=== PATIENT | male | born 2000 | race Caucasian/White ===

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

== ENCOUNTER 2023-02-22 16:49 | Emergency (ER) | payer SELFPAY ==
[~2023-02-22] VITALS: Ht 172.7 cm; Wt 59.0 kg
== END 2023-02-22 18:31 | disposition home or self-care (01) ==
LOC: ED 16:49
DX: S61.210A Laceration without foreign body of right index finger without damage to nail, initial encounter (principal); Z98.890 Other specified postprocedural states; W26.0XXA Contact with knife, initial encounter; Y93.89 Activity, other specified; Y92.89 Other specified places as the place of occurrence of the external cause; Y99.8 Other external cause status

== ENCOUNTER 2024-04-14 08:57 | Emergency (ER) | payer SELFPAY ==
[~2024-04-14] VITALS: Ht 177.8 cm; Wt 62.1 kg
[2024-04-14] MEDS ORDERED: Acetaminophen/Oxycodone 5 MG/325 MG TABLET PO ONE (09:15)
[2024-04-14] MEDS ORDERED: MELOXICAM15 MG PO (09:43)
== END 2024-04-14 09:37 | disposition home or self-care (01) ==
LOC: ED 08:57
DX: S63.91XA Sprain of unspecified part of right wrist and hand, initial encounter (principal); Z98.890 Other specified postprocedural states; W22.03XA Walked into furniture, initial encounter; Y93.89 Activity, other specified; Y92.89 Other specified places as the place of occurrence of the external cause; Y99.8 Other external cause status